=== PATIENT | male | born 1975 | race Caucasian/White ===

== ENCOUNTER 2017-04-10 07:56 | Day surgery (SDC) | payer OTHER ==
[2017-04-08 10:43] VITALS: BMI 25.1
[~2017-04-10 07:56] MED LIST: LACTATED RINGERS 1,000 ML IV SCH
[2017-04-10 08:10] VITALS: RESP 16; TEMP 98.2
[2017-04-10] MEDS ORDERED: LIDOCAINE 1% 20 ML VIAL (10MG/ML) FOR IV START INTRADERMA ONE (08:21)
[2017-04-10] MEDS ORDERED: PROPOFOL 10 MG/ML 20 ML VIAL IV ONE (08:40)
--- NOTE | 2017-04-10 08:55 | P.OP ---
Date of Procedure: 04/10/17 Preoperative Diagnosis: Dysphagia Postoperative Diagnosis: Reflux esophagitis Gastritis Procedure(s) Performed: egd with biospy Anesthesia: GETA Condition: stable Operative Findings: Mild gastritis Mild reflux esophagitis Description of Procedure: A timeout was performed to verify the correct patient and correct procedure. Patient was on continuous vitals and pulse ox monitoring throughout the procedure. She was placed in lateral decubitus position and a bite block was inserted. A well-lubricated endoscope was passed orally. The esophagus was intubated without difficulty. The EGD was passed beyond the pylorus into the first and second portion of the duodenum. Biopsies were taken using cold biopsy forceps. The scope was retroflexed. No mass, ulcer or bleeding noted within the gastric lumen. The GE junction is measured at 38 cm from the incisors . The endoscope was gradually withdrawn. Patient tolerated the procedure well and was taken to post anesthesia care unit in stable condition. Plan - Discharge Summary Discharge Medication List Butalb/Acetaminophen/Caffeine [Fioricet 50-300-40 mg Capsule] 1 tab PO DAILY PRN 04/08/17 [History] Metaxalone [Skelaxin] 800 mg PO BID 04/08/17 [History] Topiramate [Topamax] 100 mg PO BID 04/08/17 [History] oxyCODONE-APAP 10-325MG [Percocet 10-325 mg] 1 tab PO Q6H PRN 04/08/17 [History] Ranitidine HCl [Zantac] 150 mg PO BID 04/10/17 [History] Rizatriptan Benzoate [Maxalt] 10 mg PO DAILY 04/10/17 [History]
[2017-04-10 09:28] VITALS: BP 109/77; PULSE 76
== END 2017-04-10 09:39 | disposition home or self-care (01) ==
LOC: ORWHC2ENDO 07:56
PROVIDERS: ATTEND Surgery
DX: K21.0 Gastro-esophageal reflux disease with esophagitis (principal); K29.50 Unspecified chronic gastritis without bleeding; I49.9 Cardiac arrhythmia, unspecified; M50.90 Cervical disc disorder, unspecified, unspecified cervical region; Z79.1 Long term (current) use of non-steroidal anti-inflammatories (NSAID); Z79.891 Long term (current) use of opiate analgesic; Z79.899 Other long term (current) drug therapy; Z88.0 Allergy status to penicillin; Z88.1 Allergy status to other antibiotic agents
CPT/HCPCS: 88305; 88342; 43239; J2704

== ENCOUNTER → 2017-04-30 | Outpatient (CLI) | payer OTHER ==
--- NOTE | 2017-04-30 10:09 | FL ---
EXAMINATION TYPE: FL barium swallow DATE OF EXAM: 04/30/2017 CLINICAL HISTORY: Dysphasia, trouble swallowing, food feels like his scanning stalk for one year wors ening last 3 months. Recent endoscopy. TECHNIQUE: A double contrast esophagram is performed utilizing air and barium. A total of 42 second s of fluoroscopic time was utilized during procedure. COMPARISON: None FINDINGS: The esophagus shows normal motility and emptying into the stomach. No evidence of hiatal h ernia or stricture noted. No intraluminal mass is seen. There is 3 segment anterior fusion plate in t he mid to lower cervical spine is not causing significant stenosis or occlusion. No significant gastr oesophageal reflux was seen during real time performance of this study. IMPRESSION: No significant abnormality is seen to account for patient's symptoms on this study. Cor relate with recent endoscopy findings advised.
== END | disposition home or self-care (01) ==
LOC: RADFLWHC 09:18
PROVIDERS: ATTEND Surgery
DX: R13.10 Dysphagia, unspecified (principal)
CPT/HCPCS: 74220

== ENCOUNTER → 2017-09-04 | Outpatient (CLI) | payer OTHER ==
--- NOTE | 2017-09-04 10:27 | MR ---
EXAMINATION TYPE: MR brain wo con DATE OF EXAM: 09/04/2017 COMPARISON: NONE HISTORY: Headache T1-weighted sagittal, T2, FLAIR, and diffusion axial, and T2 coronal coronal views of the brain are s ubmitted. There is no evidence of acute ischemia. The ventricles, basal cisterns, and sulci overlying the conv exities are consistent with the patient's age. There is no mass effect. Craniocervical junction maintained. Sella turcica has a normal appearance. No cerebellopontine angle mass. Changes of chronic sinusitis noted. IMPRESSION: 1. No acute intracranial process. 2. Mild chronic sinusitis
== END | disposition home or self-care (01) ==
LOC: RADMRIMAIN 06:03
PROVIDERS: ATTEND Family Medicine
DX: R51 Headache (principal); J32.9 Chronic sinusitis, unspecified
CPT/HCPCS: 70551

== ENCOUNTER 2018-12-24 06:55 | Day surgery (SDC) | payer OTHER ==
[2018-12-22 10:20] VITALS: BMI 25.8
[~2018-12-24 06:55] MED LIST changes: +LIDOCAINE 1% 20 ML VIAL (10MG/ML) FOR IV START INTRADERMA PRN
[2018-12-24] MEDS ORDERED: LACTATED RINGERS 1,000 ML IV ONE (07:08)
[2018-12-24 07:17] VITALS: TEMP 98.4
[2018-12-24] MEDS ORDERED: LIDOCAINE 1% INJ 10MG/ML (20 ML MDV) ONE (07:56)
[2018-12-24] MEDS ORDERED: MIDAZOLAM 2 MG/2 ML VIAL ONE (07:56)
[2018-12-24] MEDS ORDERED: PROPOFOL 10 MG/ML 20 ML VIAL IV ONE (07:56)
[2018-12-24] MEDS ORDERED: fentaNYL (PF) 50 MCG/ML 2 ML AMP ONE (07:56)
--- NOTE | 2018-12-24 08:29 | P.PCN ---
Date of Procedure: 12/24/18 Description of Procedure: BRIEF HISTORY: Patient is a 43-year-old, pleasant, male patient with a history of solid food dysphagia. The patient reports frequent episodes of dysphagia to solid food occurring proximally in his esophagus. He reports that he has tried PPI therapy and is currently on Zantac daily but has continued to have symptoms. He has not required an ER visit for management of an esophageal foreign body in the past. He reports having undergone an upper endoscopy approximately 2 months ago at which time he was told the esophagus looked normal. He also has a history of multi level cervical fusion which he feels may be contributing to his symptoms. PROCEDURE PERFORMED: Esophagogastroduodenoscopy with biopsy and rigid wire guided Savary dilation. PREOPERATIVE DIAGNOSIS: Esophageal dysphagia. ESTIMATED BLOOD LOSS: Minimal. IV sedation per anesthesia. PROCEDURE: After informed consent was obtained, the patient was brought into the endoscopy unit. IV sedation was administered by Anesthesia under continuous monitoring. Initially the Olympus GIF-190 video endoscope was inserted into the mouth. Esophagus intubated without any difficulty. It was gradually advanced into the stomach and duodenum and carefully examined. The bulb and the second part of the duodenum appeared normal. The scope at this time was withdrawn to the stomach, adequately insufflated with air, and upon careful examination, mucosa of the antrum, body, cardia and the fundus appeared normal, except for some mild scattered erythema and irritation in the antrum and body suggestive of mild gastritis which was biopsied. The scope was then withdrawn into the esophagus. The GE junction was located at 39 cm from the incisors. The esophagus appeared normal. Mid esophageal biopsies were taken given history of dysphagia. A guidewire was then passed into the stomach under direct visualization. The esophagus was then dilated with Savary dilators measuring 51 -Occitan and 57-Occitan over the guidewire. The endoscope was then inserted into the mouth, the esophagus was intubated without difficulty and the previously dilated area of the esophagus as well as the stomach was visualized with no abnormalities noted. The patient tolerated the procedure well. IMPRESSION: 1. Mild scattered gastritis of the antrum and body, biopsied. 2. Mid esophageal biopsies. 3. Rigid esophageal dilation over a guidewire, with dilators measuring 51- Occitan and 57-Occitan. RECOMMENDATIONS: The findings of this examination were discussed with the patient and his . Okay for soft diet today. Await pathology from biopsies. Patient should follow-up in clinic in 1-2 weeks for results of biopsies. Will empirically start omeprazole 20 mg twice daily and decide on future treatment and follow-up in the office.
[2018-12-24 09:13] VITALS: BP 110/74; PULSE 60; RESP 15
== END 2018-12-24 09:40 | disposition home or self-care (01) ==
LOC: ORWHC2ENDO 06:55
PROVIDERS: ATTEND Internal Medicine
DX: R13.14 Dysphagia, pharyngoesophageal phase (principal); K29.50 Unspecified chronic gastritis without bleeding; K21.9 Gastro-esophageal reflux disease without esophagitis; Z98.1 Arthrodesis status; Z86.79 Personal history of other diseases of the circulatory system; Z79.891 Long term (current) use of opiate analgesic; Z79.899 Other long term (current) drug therapy; Z88.1 Allergy status to other antibiotic agents; Z88.0 Allergy status to penicillin
CPT/HCPCS: 88305; 43239; 43249; J2250; J2001; J3010; J2704

== ENCOUNTER → 2019-08-18 | Outpatient (CLI) | payer OTHER ==
--- NOTE | 2019-08-19 08:37 | MR ---
EXAMINATION TYPE: MR lumbar spine wo/w con DATE OF EXAM: 08/18/2019 COMPARISON: CT pelvis March 19, 2012 HISTORY: Lumbar disc prolapse with radiculopathy per order. Back pain for over 6 months radiating int o left buttocks per patient TECHNIQUE: Multiplanar, multisequence images of the lumbar spine is performed without and with IV contrast, util izing 7.5 mL intravenous Gadavist FINDINGS: Sagittal images of the lumbar spine show vertebral body heights and alignment to appear sat isfactory. The intervertebral discs demonstrate normal heights and hydration. The conus medullaris i s normal in position and signal ending at T12-L1 level. The bone marrow signal intensity is within n ormal limits. No suspicious postcontrast enhancement is seen. No significant spurring is noted. Axial images begin at the T12-L1 level which is thought within normal limits. There is transitional type L6 vertebra. Mild facet degenerative change L5-L6 level with central disc protrusion minimally effacing anterior t hecal sac, asymmetric mild left-sided neural foraminal narrowing. Other lumbar levels without within normal limits. Tear is 1.1 cm simple appearing cyst upper pole of the right kidney axial image 33. IMPRESSION: Transitional type L6 vertebra which shows ossific fusion on the left and asymmetric artic ulation on the right on CT pelvis study 2011 may account for patient's symptoms of pain. Some mild de generative changes noted at this L5- L6 level.
--- NOTE | 2019-08-19 08:44 | MR ---
EXAMINATION TYPE: MR brain/cspine wo/w DATE OF EXAM: 08/18/2019 COMPARISON: MRI brain September 04, 2017. MRI cervical spine August 25, 2017. HISTORY: Migraine headaches and cervical occipital neuralgia per order. History of C4-C6 fusion per p atient with chronic neck pain and migraine headaches as well as right-sided hearing loss and left-eloy ed weakness/numbness all per patient. TECHNIQUE: Multiplanar, multisequence images of the brain and brainstem as well as cervical spine are all perfor med without and with IV contrast, utilizing 7.5 mL intravenous Gadavist . FINDINGS: BRAIN: Diffusion weighted images demonstrate no evidence of a recent infarct or other diffusion abnormality. There is no extra-axial fluid collection or significant white matter signal abnormality. The ventr icular system and cisternal spaces are normal in size and appearance. The brain volume is age approp riate. Midline structures demonstrate normal morphology. The craniocervical junction appears within normal limits. Post contrast images demonstrate no abnormal enhancement. The dural venous sinuses appear pa tent. The visualized sinuses are clear and the globes are intact. IMPRESSION: Unremarkable study. No suspicious new finding is seen. C-SPINE: FINDINGS: Sagittal images of the cervical spine show the craniocervical junction to remain within nor mal limits. The cervical and upper thoracic spinal cord remains normal in course, caliber, and signa l. Vertebral alignment is stable and satisfactory. There is persistent artifact from anterior fusio n plate and disc material C4-C6 levels. The vertebral body and intravertebral disk heights remain nor mal above and below surgical levels. The bone marrow signal intensity is within normal limits. No slaughter spicious postcontrast enhancement is seen. Axial images show the C2-C3 and C3-C4 levels to appear stable and felt within normal limits. Axial images at C4-C5 and C5-C6 levels redemonstrated artifact from surgical change. Spinal canal rem ains preserved. Mild bilateral neural foraminal narrowing remains present without significant interva l progression at both levels. Axial images at C6-C7 level redemonstrate right foraminal disc protrusion axial image 18 causing asym metric [id number] right-sided neural foraminal narrowing. Spinal canal is preserved. Left-sided neural foramen is patent. No significant change from prior. Axial images at C7-T1 level remain within normal limits. IMPRESSION: Overall stable findings, postsurgical changes C4-C6 level with stable and satisfactory al ignment.
== END | disposition home or self-care (01) ==
LOC: RADMRIMAIN 18:49
PROVIDERS: ATTEND Family Medicine
DX: M47.26 Other spondylosis with radiculopathy, lumbar region (principal); M54.81 Occipital neuralgia; G43.109 Migraine with aura, not intractable, without status migrainosus; Z98.890 Other specified postprocedural states
CPT/HCPCS: 70553; 72156; 72158; A9585

== ENCOUNTER → 2020-06-13 | Outpatient (CLI) | payer OTHER ==
--- NOTE | 2020-06-13 16:10 | MR ---
EXAMINATION TYPE: MR lumbar spine wo/w con DATE OF EXAM: 06/13/2020 COMPARISON: MRI lumbar spine 08/18/2019, CT pelvis 03/19/2012. HISTORY: Lumbar disc prolapse with radiculopathy TECHNIQUE: Multiplanar, multisequence images of the lumbar spine were acquired utilizing 7.5 mL intravenous Gada vist gadolinium contrast. Transitional L6 vertebral body with previously demonstrated asymmetric bony fusion on the left. L1-L2: Normal disc appearance without desiccation. No herniation, protrusion or disc bulging. No ca nal stenosis is present. Foramina are patent bilaterally. L2-L3: Normal disc appearance without desiccation. No herniation, protrusion or disc bulging. No ca nal stenosis is present. Foramina are patent bilaterally. L3-L4: Normal disc appearance without desiccation. No herniation, protrusion or disc bulging. No ca nal stenosis is present. Foramina are patent bilaterally. L4-L5: Normal disc appearance without desiccation. No herniation, protrusion or disc bulging. No ca nal stenosis is present. Foramina are patent bilaterally. L5-L6: Normal disc appearance without desiccation. No herniation, protrusion or disc bulging. No ca nal stenosis is present. Foramina are patent bilaterally. L6-S1: Normal disc appearance without desiccation. There is minimal central disc protrusion which is contacting the anterior thecal sac without significant effacement. No canal stenosis is present. Fo ramina are patent bilaterally. Lumbar segments are intact. Facet joints are normal throughout. No paraspinal masses are identified. Conus medullaris has a normal appearance and terminates at the level of L1. Bilateral simple renal cysts. IMPRESSION: 1. No lumbar spine canal stenosis or neural foramina narrowing. 2. Transitional L6 vertebral body with left-sided bony fusion.
== END | disposition home or self-care (01) ==
LOC: RADMRIMAIN 12:31
PROVIDERS: ATTEND Family Medicine
DX: M43.26 Fusion of spine, lumbar region (principal)
CPT/HCPCS: 72158; A9585

== ENCOUNTER 2022-03-22 08:06 | Day surgery (SDC) | payer OTHER ==
[2022-03-21 09:03] VITALS: BMI 27.3
[~2022-03-22 08:06] MED LIST changes: +DEXAMETHASONE SOD PHOSPHATE 4 MG/ML 1 ML VIAL IV ONE; -LIDOCAINE 1% 20 ML VIAL (10MG/ML) FOR IV START INTRADERMA PRN; +ONDANSETRON 4 MG/2 ML VIAL IVP ONE
--- NOTE | 2022-03-22 08:28 | XR ---
KUB HISTORY: Kidney stones For KUB and 2 images Double-J stents are present bilaterally. There is a calcification at the level of the mid ureter on t he left, approximate L3 transverse process measuring approximately 8 mm at the level the proximal ure ter on the right measuring 11 mm. Smaller calcifications present over the left kidney measure approxi mately 3 mm, 2-3 are thought to be present. Bowel gas obscures detail at the right kidney. Bone tax examiner alization is normal. IMPRESSION: Bilateral ureteral stents and ureteral calcifications, nephrolithiasis.
[2022-03-22 08:37] VITALS: TEMP 98.2
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
[2022-03-22] MEDS ORDERED: fentaNYL (PF) 50 MCG/ML 2 ML AMP ONE (09:37)
[2022-03-22] MEDS ORDERED: SUCCINYLCHOLINE CHLORIDE 100 MG/5 ML SYR IV ONE (09:37)
[2022-03-22] MEDS ORDERED: LIDOCAINE 1% INJ 10MG/ML (20 ML MDV) ONE (09:37)
[2022-03-22] MEDS ORDERED: PROPOFOL 10 MG/ML 20 ML VIAL IV ONE (09:37)
--- NOTE | 2022-03-22 11:53 | FL ---
EXAMINATION TYPE: FL guidance operating room DATE OF EXAM: 03/22/2022 HISTORY: Fluoroscopy time 57 seconds of fluoroscopy provided. IMPRESSION: 1. Fluoroscopy time.
--- NOTE | 2022-03-22 11:53 | P.OP ---
Date of Procedure: 03/22/22 Preoperative Diagnosis: Bilateral ureteral calculi Postoperative Diagnosis: Same Procedure(s) Performed: Cystoscopy, bilateral ureteroscopy with Holmium laser lithotripsy, bilateral ureteral stent change Anesthesia: GETA Surgeon: Brent Win Estimated Blood Loss (ml): 10 IV fluids (ml): 600 Pathology: none sent Condition: stable Disposition: PACU Indications for Procedure: The patient is a 47-year-old white male who recently presented with right renal colic. His symptoms were intractable and he underwent cystoscopy with bilateral ureteral stent insertion on 03/15/2022. CT scan showed evidence of right hydronephrosis due to an 8 mm right UPJ calculus. A 7 mm left proximal ureteral calculus was also seen. Operative Findings: Bilateral proximal ureteral calculi, both fragmented completely via dusting. Description of Procedure: The patient was taken to the operating room and placed in the dorsolithotomy position, with legs supported in Fly stirrups. The external genitalia was p repped and draped sterilely. The 30 lens was used to introduce the 21-Guamanian Zelaya cystoscopic sheath through the urethra and into the bladder under direct vision. The prostatic urethra showed evidence of mild lateral lobe enlargement. The bladder was examined in its entirety. The distal ends of both ureteral stents were seen. No tumors or foreign bodies were seen. Grasping forceps were used to grasp the distal end of the left ureteral stent, which was withdrawn along with the cystoscope. A 0.038 inch Glidewire was passed through the stent and up to the left renal pelvis. A 12/14-Guamanian ureteral access catheter was passed over the wire, up to the mid ureter. The flexible ureteroscope was then passed through the ureteral access catheter sheath, up to the stone. The 272 micron Holmium laser probe was passed through the ureteroscope, and lithotripsy was performed utilizing a dusting mode. The calculus migrated proximally into an upper pole calyx, where dusting was completed. The procedure was terminated when there were no residual calculus fragments exceeding the size of the laser fiber tip. The ureteroscope was withdrawn. There was no evidence of ureteral trauma. The Glidewire was passed through the ureteral access catheter sheath, which was removed. The Glidewire was backloaded into the cystoscope, which was passed into the bladder. A 26 cm, 6-Guamanian double-J ureteral stent was placed over the wire. Proper stent positioning was verified fluoroscopically and endoscopically. The same procedure was performed on the right side. Once again, dusting of the calculus was performed within the proximal ureter. [place] through the procedure, a portion of the calculus refluxed into an upper pole calyx, where dusting was completed. As the ureteroscope was withdrawn, a longitudinal mucosal tear was seen proximal to the ureteral access catheter sheath, resulting from ureteral access catheter placement, but there was no evidence of ureteral perforation. The Glidewire was passed through the ureteral access catheter sheath, and a right ureteral stent was placed as had been done on the left side. The bladder was emptied and the cystoscope removed. The patient tolerated the procedure well and was taken to the recovery room in stable condition. KIRIT PATTEN Report: Procedure Acuity: Elective Stone Size and Location: Bilateral proximal ureteral calculi, 7-8 mm Ureteral Dilation: No Ureteral Access Sheath Used: Yes Stone Sent for Analysis: No All Stones/Fragments Were Removed with a Basket: No Complications: No Preoperative Antibiotics Given: Yes Stent Placed: Yes If Stent Placed, Was String Left Attached: No If Stent Placed, When is it to be Removed: 10 days Discharge Medications: Tamsulosin, tolterodine
[2022-03-22] MEDS: HYDROmorphone 0.5 MG/0.5 ML SYRINGE IVP PRN ×2 (11:54→12:39)
[2022-03-22] MEDS ORDERED: KETOROLAC 30 MG/ML 1 ML VIAL IVP STA (11:55)
[2022-03-22 12:23] VITALS: RESP 18
[2022-03-22] MEDS ORDERED: LACTATED RINGERS 1,000 ML IV ONE (12:41)
[2022-03-22 13:17] VITALS: BP 154/81; PULSE 89
== END 2022-03-22 13:18 | disposition home or self-care (01) ==
LOC: OR 08:06
PROVIDERS: ATTEND Urology
DX: N13.2 Hydronephrosis with renal and ureteral calculous obstruction (principal); K21.9 Gastro-esophageal reflux disease without esophagitis; J45.909 Unspecified asthma, uncomplicated; R13.10 Dysphagia, unspecified; R51.9 Headache, unspecified; G89.29 Other chronic pain; M54.2 Cervicalgia; M54.9 Dorsalgia, unspecified; Z90.49 Acquired absence of other specified parts of digestive tract; Z86.79 Personal history of other diseases of the circulatory system; Z98.890 Other specified postprocedural states; Z79.899 Other long term (current) drug therapy; Z88.1 Allergy status to other antibiotic agents; Z88.0 Allergy status to penicillin
CPT/HCPCS: 74018; 52356; C1894; C1758; C1769; J1100; J0690; J2405; J2001; J3010; J1885; J0330; J2704; J1170

== ENCOUNTER → 2023-04-14 | Outpatient (CLI) | payer OTHER ==
--- NOTE | 2023-04-14 22:42 | MR ---
EXAMINATION TYPE: MR lumbar spine wo con DATE OF EXAM: 04/14/2023 COMPARISON: Prior MRI lumbar spine June 13, 2020 HISTORY: Low back pain that radiates down left leg TECHNIQUE: Multiplanar, multisequence imaging of the lumbar spine is performed without IV contrast. FINDINGS: Sagittal images of the lumbar spine show vertebral body heights and alignment to appear sta ble and satisfactory. There is transitional type L6 vertebra with ossific fusion on the left redemons trated. The intervertebral discs demonstrate some multilevel disc desiccation with disc space heights are preserved. The conus medullaris remains normal in position and signal ending at T12-L1 level. The bone marrow signal intensity is within normal limits. Axial images begin at the T12-L1 level which is thought to remain within normal limits. Axial images at L1-L2 through L4-L5 levels remain within normal limits. Mild facet degenerative change L5-L6 level with central disc protrusion minimally effacing anterior t hecal sac, asymmetric mild left-sided neural foraminal narrowing. No significant change from prior. Axial images at L6-S1 level remain within normal limits. IMPRESSION: Transitional type L6 vertebra which shows ossific fusion on the left and asymmetric artic ulation on the right on CT pelvis study 2011 may account for patient's symptoms of pain. No significa nt change from prior MRIs.
--- NOTE | 2023-04-14 22:42 | MR ---
EXAMINATION TYPE: MR brain wo con DATE OF EXAM: 04/14/2023 COMPARISON: MRI brain September 04, 2017 HISTORY: Severe headaches all the time, Dizziness, Numbness top of head TECHNIQUE: Multiplanar, multisequence imaging of the brain and brainstem is performed without IV cont rast. FINDINGS: Diffusion weighted images demonstrate no evidence of a recent infarct or other diffusion abnormality. There is no extraaxial fluid collection or significant white matter signal abnormality. The ventricu lar system and cisternal spaces are normal in size and appearance. The brain volume is age appropria te. Midline structures demonstrate normal morphology. The craniocervical junction appears within normal limits. Normal vascular flow voids are present. The visualized sinuses are clear and the globes are i ntact. No suspicious fluid signal bilateral mastoid air cells. IMPRESSION: Unremarkable study. No significant change from prior.
== END | disposition home or self-care (01) ==
LOC: RADMRIMAIN 21:15
PROVIDERS: ATTEND Physician Assistant
DX: M54.50 Low back pain, unspecified (principal); G89.4 Chronic pain syndrome
CPT/HCPCS: 70551; 72148

== ENCOUNTER → 2023-05-14 | Outpatient (CLI) | payer OTHER ==
--- NOTE | 2023-05-14 18:58 | MR ---
EXAMINATION TYPE: MR cervical spine wo con DATE OF EXAM: 05/14/2023 INDICATION: Patient age: Male; 48 years old; Reason for study: M54.2 CERVICALGIA; PHH. Headache, chronic neck pain, Cervical fusion 2008 COMPARISON: 08/19/2019. TECHNIQUE: Multi planar, multi sequence imaging was performed utilizing: T1-weighted, T2-weighted, an d turbo inversion recovery imaging of the cervical spine. IV Contrast: None FINDINGS: Alignment: The cervical vertebral bodies have preserved heights. Alignment is within normal limits gi patric patient positioning. Bones: Bone signal is within normal limits. No abnormal bone marrow edema on inversion recovery seque nces. Postsurgical changes at C4-C5 and C6. Cord: The spinal cord is unremarkable with regards to their signal intensity and morphology. Discs: Intervertebral disc signal is maintained where visualized. C2-C3: No significant disc pathology. The spinal canal is patent. No neural foraminal stenosis. C3-C4: No significant disc pathology. The spinal canal is patent. Bilateral facet and uncovertebral joint arthropathy are present with mild left neural foraminal stenosis. The right neural foramen is p atent. C4-C5: No significant disc pathology. The spinal canal is patent. No neural foraminal stenosis. C5-C6: No significant disc pathology. The spinal canal is patent. Bilateral facet and uncovertebral joint arthropathy are present with mild bilateral neural foraminal stenosis. C6-C7: No significant disc pathology. The spinal canal is patent. No neural foraminal stenosis. C7-T1: No significant disc pathology. The spinal canal is patent. No neural foraminal stenosis. Other: None. IMPRESSION: 1. Postsurgical changes without evidence for significant spinal canal or neural foraminal stenosis. 2. Minimal degeneration changes throughout the spine.
== END | disposition home or self-care (01) ==
LOC: RADMRIMAIN 17:55
PROVIDERS: ATTEND Family Medicine
DX: M47.812 Spondylosis without myelopathy or radiculopathy, cervical region (principal)
CPT/HCPCS: 72141

== ENCOUNTER 2024-01-21 07:44 | Day surgery (SDC) | payer OTHER ==
[2024-01-19 11:45] VITALS: BMI 29.5
[2024-01-21] MEDS: LIDOCAINE 1% (10MG/ML) FOR IV START INTRADERMA PRN (08:52)
[2024-01-21] MEDS: LACTATED RINGERS 1,000 ML IV SCH (08:52)
[2024-01-21 08:55] VITALS: TEMP 97.6
[2024-01-21] MEDS ORDERED: PROPOFOL 10 MG/ML 20 ML VIAL IV ONE (08:56)
--- NOTE | 2024-01-21 09:11 | P.PCN ---
Date of Procedure: 01/21/24 Procedure(s) Performed: BRIEF HISTORY: Patient is a 48-year-old pleasant white male scheduled for an elective colonoscopy as a part of screening for colon cancer. PROCEDURE PERFORMED: Colonoscopy. PREOPERATIVE DIAGNOSIS: Screening for colon cancer. IV sedation per Anesthesia. PROCEDURE: After informed consent was obtained, the patient, was brought into the endoscopy unit. IV sedation was administered by Anesthesia under continuous monitoring. Digital rectal examination was normal. Initially the Olympus CF-160 flexible video colonoscope was then inserted in the rectum, gradually advanced into the cecum without any difficulty. Careful examination was performed as the scope was gradually being withdrawn. Ileocecal valve and the appendiceal orifice were visualized and appeared normal. Prep was excellent. Mucosa of the cecum, ascending colon, transverse colon, descending colon, sigmoid colon, and rectum appeared normal. Retroflexion was performed in the rectum and no lesions were seen. The patient tolerated the procedure well. IMPRESSION: Normal-appearing colon from rectum to cecum with no evidence of colorectal neoplasia. RECOMMENDATIONS: Findings of this examination were discussed with the patient is well as his family.. He was advised to have a repeat screening colonoscopy in 10 years.
[2024-01-21 09:31] VITALS: BP 117/76; PULSE 78; RESP 14
== END 2024-01-21 09:47 | disposition home or self-care (01) ==
LOC: ORWHC2ENDO 07:44
PROVIDERS: ATTEND Internal Medicine Gastroenterology
DX: Z12.11 Encounter for screening for malignant neoplasm of colon (principal); J44.9 Chronic obstructive pulmonary disease, unspecified; K21.9 Gastro-esophageal reflux disease without esophagitis; Z79.51 Long term (current) use of inhaled steroids; Z88.0 Allergy status to penicillin; Z79.899 Other long term (current) drug therapy
CPT/HCPCS: 45378; J2704

== ENCOUNTER 2024-11-26 08:25 | Day surgery (SDC) | payer OTHER ==
[2024-11-26 09:17] VITALS: TEMP 97.6
[2024-11-26] MEDS: IV FLUID CONTINUATION 1,000 ML IV ONE (09:19)
[2024-11-26] MEDS: LACTATED RINGERS 1,000 ML IV SCH (09:20)
[2024-11-26] MEDS ORDERED: PROPOFOL 10 MG/ML 20 ML VIAL IV ONE (10:11)
[2024-11-26] MEDS ORDERED: LIDOCAINE 1% INJ 10MG/ML (20 ML MDV) ONE (10:11)
--- NOTE | 2024-11-26 10:25 | P.PCN ---
Date of Procedure: 11/26/24 Procedure(s) Performed: BRIEF HISTORY: Patient is a 72-year-old, pleasant, white male scheduled for an upper endoscopy as a part evaluation of intermittent dysphagia to solids for the last several years duration. Last EGD with dilation was performed in 2019 and was noted to have distal esophageal stricture.. PROCEDURE PERFORMED: Esophagogastroduodenoscopy with biopsy and dilation. PREOPERATIVE DIAGNOSIS: Dysphagia to solids months duration.. IV sedation per anesthesia. PROCEDURE: After informed consent was obtained, the patient was brought into the endoscopy unit. IV sedation was administered by Anesthesia under continuous monitoring. Initially the Olympus GIF-140 video endoscope was inserted into the mouth. Esophagus intubated without any difficulty. It was gradually advanced into the stomach and duodenum and carefully examined. The bulb and the second part of the duodenum appeared normal. The scope at this time was withdrawn to the stomach, adequately insufflated with air, and upon careful examination, mucosa of the antrum, body, cardia and the fundus appeared normal. The scope was then withdrawn into the esophagus. Small hiatal hernia noted. The GE junction was located at 39 cm from the incisors. Distal esophageal Schatzki's ring identified and this was dilated using 18 to 20 mm TTS balloon for 60 seconds. There was some mucosal tear with oozing identified. The esophagus appeared normal. There were no erosions or ulcerations seen, multiple biopsies were done from the mid and distal esophagus to rule out eosinophilic esophagitis and the patient tolerated the procedure well. IMPRESSION: 1. Distal esophageal Schatzki's ring status post balloon dilation using 18 to 20 mm TTS balloon as described above. 2. Small hiatal hernia. RECOMMENDATIONS: The findings of this examination were discussed with the patient as well as his family. He was advised to follow-up with the biopsy results.. No clear liquids for 2 hours. Continue with omeprazole 20 mg daily and follow antireflux measures
[2024-11-26 10:50] VITALS: BP 128/82; PULSE 85; RESP 18
== END 2024-11-26 11:15 ==
LOC: ORWHC2ENDO 08:25
PROVIDERS: ATTEND Internal Medicine Gastroenterology
DX: K20.90 Esophagitis, unspecified without bleeding (principal); K44.9 Diaphragmatic hernia without obstruction or gangrene; K21.9 Gastro-esophageal reflux disease without esophagitis; I10 Essential (primary) hypertension; J45.909 Unspecified asthma, uncomplicated; I47.10 Supraventricular tachycardia, unspecified; M54.50 Low back pain, unspecified; Z90.89 Acquired absence of other organs; Z88.0 Allergy status to penicillin; Z88.1 Allergy status to other antibiotic agents; Z79.02 Long term (current) use of antithrombotics/antiplatelets; Z79.899 Other long term (current) drug therapy
CPT/HCPCS: 88305; 43239; 43249; J2003; J2704; C1726